=== PATIENT | female | born 1940 | race Caucasian/White ===

== ENCOUNTER 2022-09-18 17:24 | Emergency (ER) | payer OTHER, MEDICARE ==
[2022-09-18 17:46] VITALS: TEMP 98.2; BMI 24.2
[2022-09-18] MEDS ORDERED: ALPRAZolam 0.25 MG TABLET PO ONE (17:55)
[2022-09-18] MEDS ORDERED: ALBUTEROL SO4 2.5/IPRATROPIUM 0.5 INH SOL 3 ML VIAL.NEB. NEB ONE (17:58)
[2022-09-18] MEDS ORDERED: ALPRAZolam 0.25 MG TABLET ONE (17:58)
[2022-09-18] MEDS: ALBUTEROL SO4 2.5/IPRATROPIUM 0.5 INH SOL 3 ML VIAL.NEB. NEB SCH ×3 (18:03→18:50)
[2022-09-18] MEDS ORDERED: ALBUTEROL SO4 HFA INHALER IH ONE ×2 (18:47→18:51)
[2022-09-18 18:49] VITALS: BP 153/99; PULSE 70; RESP 20
== END 2022-09-18 19:18 | disposition home or self-care (01) ==
LOC: FER 17:24
PROC: 3E0F7GC Introduction of Other Therapeutic Substance into Respiratory Tract, Via Natural or Artificial Opening (ICD-10-PCS; principal; 2022-09-18)
PROC: 3E0F7GC Introduction of Other Therapeutic Substance into Respiratory Tract, Via Natural or Artificial Opening (ICD-10-PCS; 2022-09-18)
DX: J20.9 Acute bronchitis, unspecified (principal); I10 Essential (primary) hypertension; R06.2 Wheezing; R05.1 Acute cough; R09.81 Nasal congestion; J02.9 Acute pharyngitis, unspecified; R68.83 Chills (without fever); R51.9 Headache, unspecified; H92.09 Otalgia, unspecified ear; R07.89 Other chest pain; Z20.822 Contact with and (suspected) exposure to COVID-19
CPT/HCPCS: 0241U-QW; 71046-TC-FY; 99284-25